=== PATIENT | female | born 1950 | race Hispanic/Latino ===

== ENCOUNTER 2017-11-09 00:05 | Observation (INO) | payer OTHER ==
[~2017-11-09] VITALS: Ht 154.9 cm; Wt 69.0 kg
[2017-11-09] MEDS ORDERED: MAG HYDROX/AL HYDROX/SIMETH ES 30 ML SUSP UDCUP ONE (00:56)
[2017-11-09] MEDS ORDERED: LIDOCAINE HCL 2% VISCOUS 15 ML UDCUP ONE (00:56)
[2017-11-09 01:10] LABS: APPEARANCE,URINE Clear (CLEAR); BILIRUBIN,URINE Negative (NEGATIVE); COLOR,URINE Yellow (YELLOW); GLUCOSE, URINE (UA) Negative (NEGATIVE); KETONES,URINE Negative (NEGATIVE); LEUKOCYTE ESTERASE ,URINE Trace (NEGATIVE); NITRATE,URINE Negative (NEGATIVE); OCCULT BLOOD,URINE Negative (NEGATIVE); PROTEIN,URINE Negative (NEGATIVE)
[2017-11-09 01:11] LABS: BASOPHILS % (AUTO) 0.3 % (0.0-5.0); EOSINOPHILS % (AUTO) 0.1 % (0.0-8.0); HEMATOCRIT 47.9 % (36-48); LYMPHOCYTES % (AUTO) 12.9 % (21.0-51.0); MEAN CORPUSCULAR HEMOGLOBIN 29.2 pg (27.0-33.0); MEAN CORPUSCULAR HGB CONC 33.3 g/dL (32.0-36.0); MEAN CORPUSCULAR VOLUME 87.9 fL (79-99); MONOCYTES % (AUTO) 4.5 % (3.0-13.0); NEUTROPHILS % (AUTO) 82.2 % (40.0-77.0); PLATELET COUNT (AUTO) 414 K/uL (130-400); RED BLOOD CELL COUNT(AUTO) 5.45 MIL/uL (4.00-5.50); RED CELL DISTRIBUTION WIDTH 13.5 % (11.0-15.5)
[2017-11-09 01:18] LABS: CREATININE 0.7 mg/dL (0.5-1.5); POTASSIUM 4.2 mmol/L (3.5-5.1)
[2017-11-09 01:30] LABS: ALBUMIN 3.6 g/dL (3.5-5.0); CREATINE KINASE MB 0.5 ng/mL (0.5-3.6); TOTAL PROTEIN, SERUM 7.8 g/dL (6.0-8.3)
[2017-11-09 01:35] LABS: BACTERIA,URINE None Seen /HPF (None Seen); MUCUS,URINE Moderate LPF (None Seen); RBC,URINE None Seen /HPF (0-1); SQUAMOUS EPITHELIAL CELL,UR Few /HPF (0-2); WBC,URINE 0-1 /HPF (0-1)
[2017-11-09] MEDS ORDERED: LEVOFLOXACIN 500 MG/D5W 100 ML 100 ML ONE (01:50)
[2017-11-09] MEDS ORDERED: KETOROLAC TROMETHAMINE 15MG/ML ONE (01:51)
[2017-11-09] MEDS: LEVOFLOXACIN 500 MG/D5W 100 ML 100 ML IV SCH (03:00)
[2017-11-09] MEDS ORDERED: HYDRALAZINE HCL 20 MG/ML VIAL IV PRN (03:00)
[2017-11-09] MEDS ORDERED: POTASSIUM CHLORIDE 20 MEQ ERTAB PO PRN (03:00)
[2017-11-09] MEDS ORDERED: POTASSIUM CHLORIDE 20MEQ/100ML 100 ML IV PRN (03:00)
[2017-11-09] MEDS: METRONIDAZOLE 500MG/100ML BAG 100 ML IV SCH ×3 (03:00→18:29)
[2017-11-09] MEDS ORDERED: POTASSIUM CHLORIDE 10% ELIXIR 20 MEQ/15 ML UDCUP PO PRN (03:00)
[2017-11-09] MEDS ORDERED: MORPHINE SULFATE 2 MG/ML 1ML SYG IV PRN (03:00)
[2017-11-09] MEDS ORDERED: LIDOCAINE HCL-MPF 1% 2ML VIAL IVP PRN (03:00)
[2017-11-09] MEDS ORDERED: ONDANSETRON HCL 4 MG/2 ML VIAL IV PRN (03:00)
[2017-11-09] MEDS ORDERED: METRONIDAZOLE 500MG/100ML BAG 100 ML ONE (03:08)
[2017-11-09] MEDS ORDERED: MORPHINE SULFATE 2 MG/ML 1ML SYG ONE (06:37)
[2017-11-09] MEDS ORDERED: LORAZEPAM 2 MG/ML 1 ML VIAL ONE (08:11)
[2017-11-09] MEDS: FAMOTIDINE 20MG TAB 20 MG TAB PO SCH ×2 (09:00→21:00)
[2017-11-09] MEDS ORDERED: GADOBENATE DIMEGLUMINE 20 ML IV ONE (10:32)
[2017-11-09] MEDS ORDERED: KETOROLAC TROMETHAMINE 15MG/ML IV PRN (14:00)
[2017-11-09] MEDS ORDERED: MORPHINE SULFATE 2 MG/ML 1ML SYG IVP PRN (14:00)
[2017-11-09] MEDS ORDERED: MORPHINE SULFATE 4 MG/1ML SYG IVP PRN (14:00)
[2017-11-09] MEDS ORDERED: ACETAMINOPHEN-CODEINE 300/30MG TAB PO PRN (14:00)
[2017-11-09] MEDS ORDERED: ONDANSETRON HCL MDV 20ML 2 MG/ML VIAL ONE (15:57)
[2017-11-09] MEDS ORDERED: MORPHINE SULFATE 4 MG/1ML SYG ONE (15:58)
[2017-11-09] MEDS ORDERED: FAMOTIDINE 20MG TAB 20 MG TAB ONE (15:58)
[2017-11-09] MEDS ORDERED: LISI10TA7 PO (17:06)
[2017-11-09] MEDS ORDERED: CHOL500050 PO (17:06)
[2017-11-09] MEDS ORDERED: ASPI-1005 PO (17:06)
[2017-11-09] MEDS ORDERED: ALEN70TA47 PO (17:06)
[2017-11-09] MEDS ORDERED: TRAM50TA4 PO (17:06)
[2017-11-09] MEDS ORDERED: LEVO25TA54 PO (17:06)
[2017-11-09 17:15] VITALS: BP 116/87
[2017-11-09] MEDS: SODIUM CHLORIDE 0.9% 1000ML 1,000 ML IV SCH (18:30)
[2017-11-09 20:00] VITALS: BP 154/73
[2017-11-09] MEDS: ALPRAZOLAM 0.5 MG TABLET PO SCH (21:00)
[2017-11-09] MEDS: ONDANSETRON HCL MDV 20ML 2 MG/ML VIAL IV PRN (22:22)
[2017-11-10] VITALS: BP 187/89
[2017-11-10] MEDS: ALPRAZOLAM 0.5 MG TABLET PO SCH ×2 (01:08→20:39)
[2017-11-10 04:00] VITALS: BP 164/75
[2017-11-10] MEDS: LEVOFLOXACIN 500 MG/D5W 100 ML 100 ML IV SCH (04:57)
[2017-11-10 06:00] LABS: HEMATOCRIT 46.5 % (36-48); MEAN CORPUSCULAR HEMOGLOBIN 29.8 pg (27.0-33.0); MEAN CORPUSCULAR HGB CONC 33.9 g/dL (32.0-36.0); MEAN CORPUSCULAR VOLUME 87.8 fL (79-99); PLATELET COUNT (AUTO) 447 K/uL (130-400); RED CELL DISTRIBUTION WIDTH 13.5 % (11.0-15.5); WHITE BLOOD COUNT (AUTO) 12.9 K/uL (4.8-10.8)
[2017-11-10 06:09] LABS: CREATININE 0.7 mg/dL (0.5-1.5); POTASSIUM 4.1 mmol/L (3.5-5.1)
[2017-11-10] MEDS: LEVOTHYROXINE 25 MCG TABLET PO SCH (06:30)
[2017-11-10] MEDS: METRONIDAZOLE 500MG/100ML BAG 100 ML IV SCH ×3 (06:39→22:07)
[2017-11-10 08:00] VITALS: BP 150/78
[2017-11-10] MEDS: FAMOTIDINE 20MG TAB 20 MG TAB PO SCH ×2 (09:48→20:39)
[2017-11-10] MEDS: SODIUM CHLORIDE 0.9% 1000ML 1,000 ML IV SCH (09:48)
[2017-11-10] MEDS: ONDANSETRON HCL MDV 20ML 2 MG/ML VIAL IV PRN (09:54)
[2017-11-10 11:22] VITALS: BP 158/77
[2017-11-10 16:00] VITALS: BP 183/74
[2017-11-10] MEDS: ACETAMINOPHEN-CODEINE 300/30MG TAB PO PRN (16:17)
[2017-11-10 20:00] VITALS: BP 133/60
[2017-11-11] VITALS: BP 116/58
[2017-11-11 04:00] VITALS: BP 115/56
[2017-11-11] MEDS: LEVOFLOXACIN 500 MG/D5W 100 ML 100 ML IV SCH (04:24)
[2017-11-11 05:01] LABS: HEMATOCRIT 46.6 % (36-48); MEAN CORPUSCULAR HGB CONC 34.3 g/dL (32.0-36.0); MEAN CORPUSCULAR VOLUME 87.5 fL (79-99); NUCLEATED RED BLOOD CELLS 0.1 % (0.0-0.19); PLATELET COUNT (AUTO) 448 K/uL (130-400); RED BLOOD CELL COUNT(AUTO) 5.33 MIL/uL (4.00-5.50); RED CELL DISTRIBUTION WIDTH 13.7 % (11.0-15.5); WHITE BLOOD COUNT (AUTO) 9.6 K/uL (4.8-10.8)
[2017-11-11 05:05] LABS: CREATININE 0.9 mg/dL (0.5-1.5); POTASSIUM 3.7 mmol/L (3.5-5.1)
[2017-11-11] MEDS: LEVOTHYROXINE 25 MCG TABLET PO SCH (06:48)
[2017-11-11] MEDS: METRONIDAZOLE 500MG/100ML BAG 100 ML IV SCH ×3 (06:48→20:13)
[2017-11-11 07:39] VITALS: BP 123/62
[2017-11-11] MEDS: FAMOTIDINE 20MG TAB 20 MG TAB PO SCH ×2 (07:46→20:12)
[2017-11-11] MEDS ORDERED: LEVO500T2 PO (11:21)
[2017-11-11] MEDS ORDERED: METR500T PO (11:21)
[2017-11-11] MEDS ORDERED: ISOVUE-370 50ML VIAL IV ONE (15:25)
[2017-11-11 16:22] VITALS: BP 109/63
[2017-11-11 19:35] VITALS: BP 130/70
[2017-11-11] MEDS: ALPRAZOLAM 0.5 MG TABLET PO SCH (20:12)
[2017-11-11] MEDS: ACETAMINOPHEN-CODEINE 300/30MG TAB PO PRN (20:13)
[2017-11-11 23:33] VITALS: BP 111/58
[2017-11-12] MEDS: LEVOFLOXACIN 500 MG/D5W 100 ML 100 ML IV SCH (03:29)
[2017-11-12 03:38] VITALS: BP 117/54
[2017-11-12] MEDS: METRONIDAZOLE 500MG/100ML BAG 100 ML IV SCH ×2 (06:07→13:47)
[2017-11-12] MEDS: LEVOTHYROXINE 25 MCG TABLET PO SCH (06:22)
[2017-11-12 07:00] VITALS: BP 117/56
[2017-11-12] MEDS: FAMOTIDINE 20MG TAB 20 MG TAB PO SCH (09:00)
[2017-11-12 11:00] VITALS: BP 126/68
[2017-11-12 16:03] VITALS: BP 114/56
== END 2017-11-12 18:03 | disposition home or self-care (01) ==
LOC: EDH 00:05 → EDHIP 01:55 → 4AH 16:40 → 3DH 11-11 18:20
PROVIDERS: ADMIT Internal Medicine; ATTEND Internal Medicine
DX: K57.92 Diverticulitis of intestine, part unspecified, without perforation or abscess without bleeding (principal); I10 Essential (primary) hypertension; E03.9 Hypothyroidism, unspecified; R20.2 Paresthesia of skin; W01.0XXA Fall on same level from slipping, tripping and stumbling without subsequent striking against object, initial encounter; Y93.89 Activity, other specified; Y92.89 Other specified places as the place of occurrence of the external cause; Y99.8 Other external cause status; Z79.82 Long term (current) use of aspirin; Z79.899 Other long term (current) drug therapy; Z91.81 History of falling
CPT/HCPCS: 36415 ×3; 71260; 72157; 72158; 74176; 78306; 80048 ×2; 80053; 81001; 82150; 82550; 82553; 83690; 84484; 85025; 85027 ×2; 86316; 96365; 96366 ×4; 96367; 96375 ×3; 96376; 99285; A4510; A9503; A9577; G0378 ×88; J1885 ×2; J1956 ×4; J2060; J2270 ×2; J3490 ×10; Q9967

== ENCOUNTER 2017-11-15 17:09 | Emergency (ER) | payer OTHER ==
[~2017-11-15 17:09] MED LIST: ALEN70TA47 PO; ASPI-1005 PO; CHOL500050 PO; LEVO25TA54 PO; LEVO500T2 PO; LISI10TA7 PO; METR500T PO; TRAM50TA4 PO
[2017-11-15 17:55] LABS: BASOPHILS % (AUTO) 0.6 % (0.0-5.0); EOSINOPHILS % (AUTO) 3.1 % (0.0-8.0); HEMATOCRIT 43.6 % (36-48); LYMPHOCYTES % (AUTO) 26.6 % (21.0-51.0); MEAN CORPUSCULAR HEMOGLOBIN 30.1 pg (27.0-33.0); MEAN CORPUSCULAR HGB CONC 34.1 g/dL (32.0-36.0); MEAN CORPUSCULAR VOLUME 88.2 fL (79-99); MONOCYTES % (AUTO) 8.1 % (3.0-13.0); NEUTROPHILS % (AUTO) 61.6 % (40.0-77.0); NUCLEATED RED BLOOD CELLS 0.1 % (0.0-0.19); PLATELET COUNT (AUTO) 399 K/uL (130-400); RED BLOOD CELL COUNT(AUTO) 4.95 MIL/uL (4.00-5.50); RED CELL DISTRIBUTION WIDTH 13.6 % (11.0-15.5); WHITE BLOOD COUNT (AUTO) 11.2 K/uL (4.8-10.8)
[2017-11-15] MEDS ORDERED: FUROSEMIDE 10 MG/ML 2ML VIAL ONE (18:04)
[2017-11-15 18:07] LABS: CARBON DIOXIDE 30 mmol/L (21-32); CHLORIDE 105 mmol/L (101-111); CREATININE 0.8 mg/dL (0.5-1.5); GLOMERULAR FILTR. RATE CALC 76 mL/min (>60); GLUCOSE,RANDOM 139 mg/dL (70-105); POTASSIUM 3.8 mmol/L (3.5-5.1); SODIUM SERUM 142 mmol/L (136-145); UREA NITROGEN, BLOOD 14 mg/dL (7-18)
[2017-11-15 18:12] LABS: B-TYPE NATRIURETIC PEPTIDE 20 pg/mL (0-100)
[2017-11-15 18:22] LABS: ALANINE AMINOTRANSFERASE 11 U/L (12-78); ALBUMIN 3.1 g/dL (3.5-5.0); ASPARTATE AMINOTRANSFERASE 14 U/L (10-37); BILIRUBIN,TOTAL 0.6 mg/dL (0.2-1.0); CREATINE KINASE MB < 0.5 ng/mL (0.5-3.6); TOTAL PROTEIN, SERUM 6.8 g/dL (6.0-8.3)
[2017-11-15] MEDS ORDERED: DIPHENHYDRAMINE HCL 25 MG CAPSULE ONE (18:39)
== END 2017-11-15 18:47 | disposition home or self-care (01) ==
LOC: EDH 17:09
DX: M79.89 Other specified soft tissue disorders (principal); I10 Essential (primary) hypertension; E07.9 Disorder of thyroid, unspecified
CPT/HCPCS: 36415; 71045; 80053; 82553; 83880; 84484; 85025; 93005; 96374; 99285; J1940; Q0163

== ENCOUNTER 2022-10-17 08:43 | Emergency (ER) | payer OTHER, MEDICARE ==
[~2022-10-17] VITALS: Ht 154.9 cm; Wt 59.0 kg
[~2022-10-17 08:43] MED LIST changes: -ALEN70TA47 PO; +ALEN70TA80 PO; +CEPH500B PO; +LISI10TA24 PO; -LISI10TA7 PO
[2022-10-17 08:45] VITALS: BP 139/53
[2022-10-17 09:18] LABS: BASOPHILS % (AUTO) 0.5 % (0.0-5.0); EOSINOPHILS % (AUTO) 0.7 % (0.0-8.0); HEMATOCRIT 50.5 % (36-48); MEAN CORPUSCULAR HEMOGLOBIN 30.2 pg (27.0-33.0); MEAN CORPUSCULAR HGB CONC 33.7 g/dL (32.0-36.0); MEAN CORPUSCULAR VOLUME 89.9 fL (79-99); MONOCYTES % (AUTO) 8.4 % (3.0-13.0); PLATELET COUNT (AUTO) 163 K/uL (130-400); RED BLOOD CELL COUNT(AUTO) 5.62 MIL/uL (4.00-5.50); WHITE BLOOD COUNT (AUTO) 8.1 K/uL (4.8-10.8)
[2022-10-17 09:26] LABS: CREATININE 0.9 mg/dL (0.5-1.5); POTASSIUM 3.7 mmol/L (3.5-5.1)
[2022-10-17 09:31] LABS: ALBUMIN 3.4 g/dL (3.5-5.0); TOTAL PROTEIN, SERUM 6.7 g/dL (6.0-8.3)
[2022-10-17 10:26] LABS: APPEARANCE,URINE CLOUDY (CLEAR); BILIRUBIN,URINE NEGATIVE (NEGATIVE); COLOR,URINE YELLOW (YELLOW); GLUCOSE, URINE (UA) NEGATIVE (NEGATIVE); KETONES,URINE NEGATIVE (NEGATIVE); LEUKOCYTE ESTERASE ,URINE 25 Leu/uL (NEGATIVE); NITRATE,URINE NEGATIVE (NEGATIVE); PROTEIN,URINE NEGATIVE (NEGATIVE); UROBILINOGEN,URINE 0.2 mg/dL (0.2-1.0)
[2022-10-17 10:29] LABS: BACTERIA,URINE RARE /HPF (None Seen); MUCUS,URINE RARE LPF (None Seen); SQUAMOUS EPITHELIAL CELL,UR MANY /HPF (0-2)
[2022-10-17] MEDS ORDERED: MACR100 PO (10:43)
[2022-10-17] MEDS ORDERED: ONDA4TAB10 PO (11:21)
[2022-10-17] MEDS ORDERED: ONDANSETRON ODT 4MG TAB SL ONE (11:30)
== END 2022-10-17 11:59 | disposition home or self-care (01) ==
LOC: EDH 08:43
DX: N39.0 Urinary tract infection, site not specified (principal); I10 Essential (primary) hypertension; E78.00 Pure hypercholesterolemia, unspecified; E03.9 Hypothyroidism, unspecified; Z79.899 Other long term (current) drug therapy
CPT/HCPCS: 36415; 80053; 81001; 83690; 85025; 86140

== ENCOUNTER → 2023-03-21 | Outpatient (CLI) | payer OTHER, MEDICARE ==
[~2023-03-21] MED LIST changes: +ACET-2743 PO; -ALEN70TA80 PO; +ATOR10 PO; -CEPH500B PO; -CHOL500050 PO; +CIPR-278 PO; +DOCU100C33 PO; +GADOTERATE MEGLUMINE 5 MMOL/10 ML VIAL IV ONE; -LEVO25TA54 PO; -LEVO500T2 PO; +LEVO75CA5 PO; -LISI10TA24 PO; +LISI20TA24 PO; +METR375C2 PO; -METR500T PO; +MIRT-22 PO; +ONDA-104 PO; +ONDA4TAB10 PO; +PRAV40TA3 PO; -TRAM50TA4 PO
== END | disposition home or self-care (01) ==
LOC: RAH 07:48
PROVIDERS: ATTEND Internal Medicine Hematology & Oncology
DX: D18.02 Hemangioma of intracranial structures (principal); M89.9 Disorder of bone, unspecified; R11.2 Nausea with vomiting, unspecified; D43.4 Neoplasm of uncertain behavior of spinal cord; M47.814 Spondylosis without myelopathy or radiculopathy, thoracic region
CPT/HCPCS: 72157; A9575

== ENCOUNTER 2023-04-22 07:54 | Observation (INO) | payer OTHER, MEDICARE ==
[~2023-04-22] VITALS: Ht 154.9 cm; Wt 61.3 kg
[~2023-04-22 07:54] MED LIST changes: -GADOTERATE MEGLUMINE 5 MMOL/10 ML VIAL IV ONE
[2023-04-22] MEDS ORDERED: MORPHINE 2 MG SYG IVP ONE (08:30)
[2023-04-22] MEDS ORDERED: DEXAMETHASONE SOD PHOSPHATE 4 MG/ML 1ML VIAL IV ONE (08:30)
[2023-04-22] MEDS ORDERED: 0.9%NACL 1000ML 1,000 ML IV SCH (08:30)
[2023-04-22] MEDS: PANTOPRAZOLE 40 MG/VIAL IVP SCH (09:03)
[2023-04-22 12:56] LABS: BASOPHILS # (AUTO) 0.02 K/uL (0.00-0.20); BASOPHILS % (AUTO) 0.2 % (0.0-5.0); EOSINOPHILS # (AUTO) 0.02 K/uL (0.00-0.70); EOSINOPHILS % (AUTO) 0.2 % (0.0-8.0); IMMATURE GRANULOCYTE ABSOLUTE 0.04 K/uL (0-1); LYMPHOCYTES # (AUTO) 1.1 K/uL (1.0-4.8); LYMPHOCYTES % (AUTO) 12.1 % (21.0-51.0); MEAN CORPUSCULAR HGB CONC 33.5 g/dL (32.0-36.0); MEAN CORPUSCULAR VOLUME 89.5 fL (79-99); MONOCYTES # (AUTO) 0.1 K/uL (0.1-1.0); MONOCYTES % (AUTO) 0.6 % (3.0-13.0); NEUTROPHILS # (AUTO) 8.1 K/uL (1.8-7.7); NEUTROPHILS % (AUTO) 86.5 % (40.0-77.0); PLATELET COUNT (AUTO) 218 K/uL (130-400); RED BLOOD CELL COUNT(AUTO) 4.47 MIL/uL (4.00-5.50); RED CELL DISTRIBUTION WIDTH 12.9 % (11.0-15.5); WHITE BLOOD COUNT (AUTO) 9.4 K/uL (4.8-10.8)
[2023-04-22 13:13] LABS: INR 0.94 (0.85-1.15); PROTHROMBIN TIME 10.9 SEC (9.6-11.6)
[2023-04-22 13:15] LABS: PARTIAL THROMBOPLASTIN TIME 27.8 SEC (26.3-35.5)
[2023-04-22 13:27] LABS: ALBUMIN 3.5 g/dL (3.5-5.0); BILIRUBIN,TOTAL 0.9 mg/dL (0.2-1.0); CREATININE 1.3 mg/dL (0.5-1.5); POTASSIUM 4.9 mmol/L (3.5-5.1); TOTAL PROTEIN, SERUM 6.7 g/dL (6.0-8.3)
[2023-04-22 16:00] VITALS: BP 128/51; PULSE 64; RESP 20
[2023-04-22] MEDS ORDERED: MORPHINE 2 MG SYG IVP PRN (17:30)
[2023-04-22] MEDS: DEXAMETHASONE SOD PHOSPHATE 4 MG/ML 1ML VIAL IVP SCH (18:04)
[2023-04-22 20:00] VITALS: O2SAT 98
[2023-04-22] MEDS: LISINOPRIL 10 MG TABLET PO SCH (20:34)
[2023-04-22 20:49] VITALS: BP 133/55; PULSE 65; RESP 16
[2023-04-22 23:41] VITALS: BP 127/58; PULSE 51; RESP 17
[2023-04-23] VITALS (30 sets, daily range): BP systolic 101–143; BP diastolic 37–98; PULSE 50–85; RESP 10–18; O2SAT 98–99
[2023-04-23] MEDS: DEXAMETHASONE SOD PHOSPHATE 4 MG/ML 1ML VIAL IVP SCH ×3 (05:21→22:28)
[2023-04-23] MEDS: LEVOTHYROXINE 75 MCG TABLET PO SCH (06:01)
[2023-04-23 06:33] LABS: SARS-CoV-2, RNA, NAAT NEGATIVE SARS CoV-2 (NEGATIVE)
[2023-04-23] MEDS: LISINOPRIL 10 MG TABLET PO SCH (09:00)
[2023-04-23] MEDS ORDERED: CEFAZOLIN SODIUM 2 GM VIAL IVPB PRN (12:00)
[2023-04-23] MEDS ORDERED: CEFAZOLIN SODIUM 2 GM VIAL ONE (12:56)
[2023-04-23] MEDS ORDERED: CEFAZOLIN SODIUM 1 GM VIAL ONE (12:57)
[2023-04-23] MEDS ORDERED: THROMBIN-JMI 5000 UNIT/VIAL TP ONE (12:58)
[2023-04-23] MEDS ORDERED: PROPOFOL 10 MG/ML 20ML VIAL IV ONE ×2 (13:08→16:00)
[2023-04-23] MEDS ORDERED: ROCURONIUM 10MG/1ML SYR 10 MG/ML ML ONE (13:08)
[2023-04-23] MEDS ORDERED: FENTANYL CITRATE PF 50 MCG/1 ML 2ML VIAL ONE (13:09)
[2023-04-23] MEDS ORDERED: EPINEPHRINE PF 1MG (1:1,000) 1 MG/ML AMP ONE (13:59)
[2023-04-23] MEDS ORDERED: BUPIVACAINE/EPI/PF 0.25% 10ML VIAL IJ ONE (14:00)
[2023-04-23] MEDS ORDERED: EPHEDRINE SULFATE 50 MG/ML AMPULE ONE (14:28)
[2023-04-23] MEDS ORDERED: ROPIVACAINE 0.5% 5MG/ML 30ML IJ ONE (15:20)
[2023-04-23] MEDS ORDERED: NEOSTIGMINE 5MG/5ML SYR IV ONE (15:59)
[2023-04-23] MEDS: LACTATED RINGERS 1000ML 1,000 ML IV SCH ×2 (15:59→16:30)
[2023-04-23] MEDS ORDERED: 0.9%NACL 10ML VIAL IVP PRN (16:30)
[2023-04-23] MEDS ORDERED: ACETAMINOPHEN 500 MG TABLET PO PRN (16:30)
[2023-04-23] MEDS ORDERED: PROMETHAZINE HCL 25 MG/ML 1ML AMPULE IM PRN (16:30)
[2023-04-23] MEDS ORDERED: HYDROCODONE/ACETAMINOPHEN 5/325 MG TAB PO PRN (16:30)
[2023-04-23] MEDS ORDERED: MORPHINE 2 MG SYG IVP PRN (16:30)
[2023-04-23] MEDS ORDERED: ONDANSETRON ODT 4MG TAB PO PRN (16:30)
[2023-04-23] MEDS ORDERED: ONDANSETRON 4MG INJ ONE (16:51)
[2023-04-23] MEDS ORDERED: MORPHINE 2 MG SYG ONE (16:52)
[2023-04-23] MEDS ORDERED: DEXAMETHASONE SOD PHOSPHATE 4 MG/ML 1ML VIAL ONE (17:13)
[2023-04-23] MEDS: PANTOPRAZOLE 40 MG/VIAL IVP SCH (18:48)
[2023-04-23] MEDS ORDERED: ATORVASTATIN 10 MG TABLET PO SCH (21:00)
[2023-04-23] MEDS ORDERED: CEFAZOLIN SODIUM 2 GM VIAL IVPB SCH (22:00)
[2023-04-24 03:41] VITALS: BP 118/58; PULSE 56; RESP 17
[2023-04-24] MEDS: DEXAMETHASONE SOD PHOSPHATE 4 MG/ML 1ML VIAL IVP SCH (04:36)
[2023-04-24] MEDS: LACTATED RINGERS 1000ML 1,000 ML IV SCH (04:45)
[2023-04-24] MEDS: LEVOTHYROXINE 75 MCG TABLET PO SCH (05:48)
[2023-04-24] MEDS ORDERED: NON-FORMULARY MEDICATION 1 EACH (Levothyroxine Sodium (Levothyroxine) 75 MCG) PO SCH (07:30)
[2023-04-24 08:00] VITALS: BP 124/54; PULSE 53; RESP 16; O2SAT 100
[2023-04-24] MEDS ORDERED: ASPIRIN 81MG CHEW TAB PO SCH (09:00)
[2023-04-24] MEDS ORDERED: LISINOPRIL 20 MG TABLET PO SCH (09:00)
[2023-04-24] MEDS: PANTOPRAZOLE 40 MG/VIAL IVP SCH (09:48)
[2023-04-24 12:00] VITALS: BP 119/50; PULSE 58; RESP 18
== END 2023-04-24 16:50 | disposition home or self-care (01) ==
LOC: EDH 07:54 → DIRECT 08:07 → 4BH 16:00
PROVIDERS: ADMIT Internal Medicine Hematology & Oncology; ATTEND Internal Medicine Hematology & Oncology
DX: C79.51 Secondary malignant neoplasm of bone (principal); Z20.822 Contact with and (suspected) exposure to COVID-19; C80.1 Malignant (primary) neoplasm, unspecified; D16.9 Benign neoplasm of bone and articular cartilage, unspecified; I10 Essential (primary) hypertension; E03.9 Hypothyroidism, unspecified; E11.9 Type 2 diabetes mellitus without complications; E78.5 Hyperlipidemia, unspecified; G93.89 Other specified disorders of brain; I35.0 Nonrheumatic aortic (valve) stenosis; M54.10 Radiculopathy, site unspecified; Z79.82 Long term (current) use of aspirin; Z79.899 Other long term (current) drug therapy; Z86.011 Personal history of benign neoplasm of the brain; Z90.710 Acquired absence of both cervix and uterus; Z98.890 Other specified postprocedural states
CPT/HCPCS: 96376 ×4; 96375 ×2; 80053; 85025; 85610; 85730; 36415 ×2; 93306; 93356; 93005; 88342 ×2; 88341 ×2; 96365; 20250; 88311; 88108; 88304; 88364; 87635; 88360; 88365; 72020; J1100 ×6; J2270 ×2; C9113 ×3; G0378 ×24; A4663; J7120; A4344; J3010; J0690 ×3; J2710; J0171; J3490 ×3; J2704 ×2; J2405; J2795; A4215 ×2; A4649; A4930; A4223; A4222; A4221